=== PATIENT | male | born 1955 | race Caucasian/White ===

== ENCOUNTER 2018-07-09 16:26 | Emergency (ER) | payer BC, OTHER ==
[2018-07-09] MEDS ORDERED: Aspirin 81 MG Tab.Chew PO ONE (16:44)
--- NOTE | 2018-07-09 16:44 | EDM.PDOC ---
ED HPI GENERAL MEDICAL PROBLEM - General Chief Complaint: Chest Pain Stated Complaint: HEART ATTACK Time Seen by Provider: 07/09/18 16:38 Source of Information: Reports: Patient History Limitations: Reports: No Limitations - History of Present Illness INITIAL COMMENTS - FREE TEXT/NARRATIVE: 62-year-old male presents to the ED with central chest pressure discomfort since about 1238 hrs. today. It awoke him from sleep. Patient works nights. He states since that time it's been relatively steady and constant and made worse when he walked into the hospital. It radiates slightly into his back particularly with walking into the hospital and slightly into his left shoulder. He has no known disease. He has chronic hypertension and is on 3 different blood pressure medications. His father had a myocardial infarction at a young age as well. Patient is a nonsmoker. He does not feel short of breath. He did not break out in a sweat he had slight nausea that comes and goes. Burping and belching with no real relief of the pain. He is prone to reflux and states it's been pretty good labs of late. He is morbidly obese. Onset: Today Onset Date: 07/09/18 Onset Time: 12:35 Duration: Hour(s):, Constant Location: Reports: Chest (Central chest pressure discomfort.), Radiates to ( Radiates to his left back upper shoulder and anterior shoulder particularly when he was walking into the hospital i.e. exertion made it worse.) Quality: Reports: Ache, Pressure Severity: Moderate Improves with: Reports: None Worsens with: Reports: Other (Walking seemed to make it worse.) Context: Denies: Activity, Exercise, Lifting, Sick Contact, Trauma, Other Associated Symptoms: Reports: Chest Pain. Denies: No Other Symptoms (See history of present illness), Confusion, Cough, cough w sputum, Diaphoresis, Fever/Chills, Headaches, Loss of Appetite, Malaise, Nausea/Vomiting, Rash, Seizure, Shortness of Breath, Syncope, Weakness Treatments DEVELOPMENT DIRECTOR: Reports: Other (see below) (Only his regular medicines although he did take 2 baby aspirins about half hour before coming into the ED.) Chest Pain Score (Numeric/FACES): 5 - Related Data Allergies Allergy/AdvReac Type Severity Reaction Status Date / Time No Known Allergies Allergy Verified 07/09/18 16:30 Home Meds: Home Meds Dicyclomine [Bentyl] 20 mg PO Q6H PRN #10 tablet 07/09/18 [Rx] Ibuprofen 800 mg PO TID PRN 07/09/18 [History] Lorcaserin HCl [Belviq] 10 mg PO BID 07/09/18 [History] Losartan [Cozaar] 100 mg PO DAILY 07/09/18 [History] Metoprolol Succinate 100 mg PO BID 07/09/18 [History] amLODIPine Besylate [Amlodipine Besylate] 10 mg PO DAILY 07/09/18 [History] Past Medical History Cardiovascular History: Reports: Hypertension Respiratory History: Reports: Pneumonia, Recurrent Social & Family History - Tobacco Use Smoking Status *Q: Never Smoker - Caffeine Use Caffeine Use: Reports: Coffee - Recreational Drug Use Recreational Drug Use: No - Living Situation & Occupation Living situation: Reports: Occupation: Employed ED ROS GENERAL - Review of Systems Review Of Systems: See Below Constitutional: Reports: Malaise, Fatigue, Decreased Appetite. Denies: Fever, Chills HEENT: Reports: Glasses Respiratory: Denies: Shortness of Breath, Wheezing, Pleuritic Chest Pain, Cough , Sputum, Hemoptysis Cardiovascular: Reports: Chest Pain, Blood Pressure Problem (Central chest pressure discomfort.), Dyspnea on Exertion. Denies: Claudication ( Chronic hypertension and is on 3 medications for his blood pressure), Edema, Lightheadedness, Orthopnea Endocrine: Reports: Fatigue (Sometimes.) GI/Abdominal: Reports: Other (Had diarrhea once today when he got up.). Denies : Abdominal Pain : Reports: No Symptoms Musculoskeletal: Reports: Back Pain, Joint Pain (Knees and hips at times) Skin: Reports: No Symptoms Neurological: Reports: No Symptoms Psychiatric: Reports: No Symptoms Hematologic/Lymphatic: Reports: No Symptoms Immunologic: Reports: No Symptoms ED EXAM, GENERAL - Physical Exam Exam: See Below Exam Limited By: No Limitations General Appearance: Alert, WD/WN, Anxious, Mild Distress, Other (He is markedly hypertensive at 203/105.) Eye Exam: Bilateral Eye: Normal Inspection Neck: Normal Inspection, Supple, Non-Tender, Full Range of Motion. No: Carotid Bruit, Lymphadenopathy (L), Lymphadenopathy (R) Respiratory/Chest: No Respiratory Distress, Lungs Clear, Normal Breath Sounds, No Accessory Muscle Use, Chest Non-Tender Cardiovascular: Normal Peripheral Pulses, Regular Rate, Rhythm, No Edema, No Gallop, No JVD, No Murmur, No Rub Peripheral Pulses: 1+: Posterior Tibial (L), Posterior Tibial (R), Dorsalis Pedis (L), Dorsalis Pedis (R) GI/Abdominal: Normal Bowel Sounds, Soft, Non-Tender, No Organomegaly, No Abnormal Bruit, No Mass, Pelvis Stable, Other (No pain could be elicited on deep palpation in the epigastrium or right upper quadrant to suggest a GI source of his pain.) (Male) Exam: No Hernia Back Exam: Normal Inspection, Full Range of Motion. No: CVA Tenderness (L), CVA Tenderness (R) Extremities: Normal Inspection, Normal Range of Motion, Non-Tender, Pedal Edema (Trace at the ankles.) Neurological: Alert, Oriented, CN II-XII Intact, Normal Cognition, Normal Gait Psychiatric: Anxious Skin Exam: Warm, Dry (Mildly anxious.), Intact, Normal Color, No Rash EKG INTERPRETATION EKG Date: 07/09/18 Time: 16:30 Rhythm: NSR Rate (Beats/Min): 63 [place]: Normal P-Wave: Present QRS: Normal ST-T: Normal QT: Normal EKG Interpretation Comments: Normal ECG. Course - Vital Signs Last Recorded V/S: Last Vital Signs Temp 36.7 C 07/09/18 16:31 Pulse 71 07/09/18 16:31 Resp 18 07/09/18 16:31 BP 203/105 H 07/09/18 16:31 Pulse Ox 97 07/09/18 16:31 - Orders/Labs/Meds Orders: Active Orders 24 hr Category Date Time Status EKG Documentation Completion [RC] STAT Care 07/09/18 16:45 Active Chest 1V Frontal [CR] Stat Exams 07/09/18 16:45 Taken Labs: Laboratory Tests 07/09/18 07/09/18 07/09/18 Range/Units 16:48 16:48 16:48 WBC 6.34 (4.23-9.07) K/mm3 RBC 4.96 (4.63-6.08) M/mm3 Hgb 15.2 (13.7-17.5) gm/L Hct 46.5 (40.1-51.0) % MCV 93.8 H (79.0-92.2) fl MCH 30.6 (25.7-32.2) pg MCHC 32.7 (32.2-35.5) g/dl RDW Std Deviation 46.1 H (35.1-43.9) fL Plt Count 263 (163-337) K/mm3 MPV 10.1 (9.4-12.3) fl Neutrophils % (Manual) 61 H (40-60) % Band Neutrophils % 0 (0-10) % Lymphocytes % (Manual) 38 (20-40) % Atypical Lymphs % 0 % Monocytes % (Manual) 1 L (2-10) % Eosinophils % (Manual) 0 L (0.8-7.0) % Basophils % (Manual) 0 L (0.2-1.2) Platelet Estimate Adequate RBC Morph Comment Normal PT 10.9 (9.5-12.1) SECONDS INR 1.00 APTT (24-31) SECONDS D-Dimer, Quantitative (0.19-0.50) mg/L Sodium 141 (136-145) mEq/L Potassium 3.8 (3.5-5.1) mEq/L Chloride 103 (98-107) mEq/L Carbon Dioxide 26 (21-32) mEq/L Anion Gap 15.8 H (5-15) BUN 11 (7-18) mg/dL Creatinine 0.9 (0.7-1.3) mg/dL Est Cr Clr Drug Dosing 92.96 mL/min Estimated GFR (MDRD) > 60 (>60) mL/min BUN/Creatinine Ratio 12.2 L (14-18) Glucose 99 (74-106) mg/dL Calcium 10.0 (8.5-10.1) mg/dL Magnesium 2.0 (1.8-2.4) mg/dl Total Bilirubin 0.4 (0.2-1.0) mg/dL AST 12 L (15-37) U/L ALT 33 (16-63) U/L Alkaline Phosphatase 75 (46-116) U/L CK-MB (CK-2) 1.8 (0-3.6) ng/ml Troponin I < 0.017 (0.00-0.056) ng/mL NT-Pro-B Natriuret Pep (0-125) pg/mL Total Protein 7.1 (6.4-8.2) g/dl Albumin 3.8 (3.4-5.0) g/dl Globulin 3.3 gm/dL Albumin/Globulin Ratio 1.2 (1-2) 07/09/18 07/09/18 Range/Units 16:48 16:48 WBC (4.23-9.07) K/mm3 RBC (4.63-6.08) M/mm3 Hgb (13.7-17.5) gm/L Hct (40.1-51.0) % MCV (79.0-92.2) fl MCH (25.7-32.2) pg MCHC (32.2-35.5) g/dl RDW Std Deviation (35.1-43.9) fL Plt Count (163-337) K/mm3 MPV (9.4-12.3) fl Neutrophils % (Manual) (40-60) % Band Neutrophils % (0-10) % Lymphocytes % (Manual) (20-40) % Atypical Lymphs % % Monocytes % (Manual) (2-10) % Eosinophils % (Manual) (0.8-7.0) % Basophils % (Manual) (0.2-1.2) Platelet Estimate RBC Morph Comment PT (9.5-12.1) SECONDS INR APTT 28 (24-31) SECONDS D-Dimer, Quantitative < 0.19 L (0.19-0.50) mg/L Sodium (136-145) mEq/L Potassium (3.5-5.1) mEq/L Chloride (98-107) mEq/L Carbon Dioxide (21-32) mEq/L Anion Gap (5-15) BUN (7-18) mg/dL Creatinine (0.7-1.3) mg/dL Est Cr Clr Drug Dosing mL/min Estimated GFR (MDRD) (>60) mL/min BUN/Creatinine Ratio (14-18) Glucose (74-106) mg/dL Calcium (8.5-10.1) mg/dL Magnesium (1.8-2.4) mg/dl Total Bilirubin (0.2-1.0) mg/dL AST (15-37) U/L ALT (16-63) U/L Alkaline Phosphatase (46-116) U/L CK-MB (CK-2) (0-3.6) ng/ml Troponin I (0.00-0.056) ng/mL NT-Pro-B Natriuret Pep 69 (0-125) pg/mL Total Protein (6.4-8.2) g/dl Albumin (3.4-5.0) g/dl Globulin gm/dL Albumin/Globulin Ratio (1-2) Meds: Medications Discontinued Medications Generic Name Dose Route Start Last Admin Trade Name Freq PRN Reason Stop Dose Admin Aspirin 162 mg 07/09/18 16:44 07/09/18 16:51 Aspirin PO 07/09/18 16:45 162 mg ONETIME ONE Administration Al Hydroxide/Mg Hydroxide 30 0 ml 07/09/18 19:15 07/09/18 19:59 ml/ Lidocaine HCl 15 ml PO 07/09/18 19:16 45 ml ONETIME ONE Administration Dicyclomine HCl 20 mg 07/09/18 19:13 07/09/18 19:59 Bentyl PO 07/09/18 19:14 20 mg ONETIME ONE Administration Hydromorphone HCl 1 mg 07/09/18 19:13 07/09/18 20:00 Dilaudid IVPUSH 07/09/18 19:14 1 mg ONETIME ONE Administration Hyoscyamine 0.125 mg 07/09/18 17:00 07/09/18 16:53 Hyomax-Sl SL 07/09/18 17:01 0.125 mg ONETIME ONE Administration Nitroglycerin/Dextrose 25 mg in 250 mls @ 6 mls/hr 07/09/18 16:45 07/09/18 18 :09 Nitroglycerin 25 Mg/D5w 250 Ml IV 15 mcg/min TITRATE ADRAYN 9 mls/hr Titration Protocol 10 MCG/MIN Metoclopramide HCl 10 mg 07/09/18 19:14 07/09/18 20:01 Reglan IVPUSH 07/09/18 19:15 10 mg ONETIME ONE Administration - Radiology Interpretation Free Text/Narrative:: 62-year-old male presents to the ED with diffuse central heaviness pressure discomfort since about 1238 hrs. this afternoon. He awoke from sleep with a central chest discomfort. Patient works nights and was sleeping his normal hours. States the chest pain has persisted for the last 4 hours. It was made worse by walking into the hospital were seemed to radiate into his left upper back and shoulder. She did diaphoresis or real shortness of breath. He has been burping and belching an attempt to relieve some discomfort without much relief. Known history of coronary disease but his father did have a myocardial infraction a young age. Patient has severe hypertension and is on 3 different antihypertensive. He is morbidly obese. He is not sure about his cholesterol status. He is a never smoker. She'll ECG shows normal sinus rhythm at 63/m with no signs of ischemia. took 2 baby aspirins before leaving his home. I will give him another 2 baby aspirins here. He will be started on nitro drip at 10 mcg/m to help reduce his blood pressure see if it helps alleviate his chest discomfort. Will also give him Levsin 0.125 mg sublingually and repeat a second tablet in 10 minutes time to see relieves any esophageal or hiatal hernia type pain. - Re-Assessments/Exams Free Text/Narrative Re-Assessment/Exam: 07/09/18 17:12 chest x-ray done portably reveals moderate cardiomegaly and diffuse vascular congestion pattern. Hemidiaphragm is perhaps slightly elevated. No pneumothorax present. 07/09/18 17:21 patient feels his chest discomfort is easing up. He still rates it as a 2-3 out of 07/09/18 19:03 Labs reveal a normal white count at 6.34. Differential 61% neutrophils with no band cells. Hemoglobin is 15.2 with hematocrit of 46.5. Platelet count is 263,000. PT is 10.9 with an INR 1.00. PTT is 28. D-dimer is less than 0.19. Sodium 141 with a potassium of 3.8. Chloride 103 with a bicarbonate 26. And a gap is 15.8. BUN is 11 with a creatinine of 0.9. GFR is greater than 60. Glucose is 99 with a calcium of 10.0. Magnesium 2.0. Liver function is normal. CK-MB is 1.8 and troponin I is less than 0.017. BNP is 69. Total protein 7.1 with an albumin fraction of 3.8. 07/09/18 19:14 Discussed the findings with the patient. I suspect the cause of his chest pain is GI in origin as I felt this was the case from my initial assessment and a normal ECG. I am going to treat him with Dilaudid 1 mg IV and Reglan 10 mg IV for suspect hiatal hernia. I will give him a GI cocktail and Bentyl 20 mg by mouth and see what happens. 07/09/18 21:14: Patient reports he feels much better after the above medication. He particular feels the GI cocktail helped the most. Still has a very mild discomfort central chest but for the most part it is gone. This suggest strongly to me that he likely has a sliding hiatal hernia is stuck up in his lower chest. I will send him home on Bentyl 20 mg every 6 hours needed for the next day or 210 tablets will be provided. Also advised him to return to some form of antacid treatment such as Prilosec 20 mg every night at bedtime as he may be refluxing during the night due to his body habitus. If symptoms persist he may need EGD and/or barium swallow to assess his degree of his hiatal hernia. He states when he was young he used to wake up with brash water acid reflux and is mouth multiple times. He was treated for H. pylori infection and peptic ulcer disease and then things seemed to get better. Patient reassured at length that at this time there is no clinical evidence of heart related illness. Follow-up as needed. Departure - Departure Time of Disposition: 21:12 Disposition: Home, Self-Care 01 Condition: Fair Clinical Impression: Non-cardiac chest pain, Hiatal hernia Prescriptions: Dicyclomine [Bentyl] 20 mg PO Q6H PRN #10 tablet PRN Reason: Abdominal cramps/diarrhea Instructions: Hiatal Hernia, Nonspecific Chest Pain, [id number] Referrals: Kp Sullivan PA [Primary Care Provider] - Forms: ED Department Discharge Additional Instructions: Evaluation the emergency room today in regards to development of central chest pain that woke him from sleep about 1238 hrs. today. You were reviewed in the ED nearly 4 hours after development of central chest discomfort. Electrocardiogram proved to be bluntly normal showing no signs of heart attack or we call ischemia. Chest x-ray suggests that the heart is mildly enlarged lab tests proved that there was no evidence of heart attack as your enzymes were near 0. No evidence of blood clot in the lung and no extra fluid buildup in the lungs. Therefore an alternative cause for central chest pain is usually gastrointestinal in origin either esophageal spasm often due to reflux that occurs during the night when we are sleeping and may or may not cause heartburn. This can make the food pipe going to spasm in her just about as bad as heart attack. More likely however is that the stomach slid partially up into the chest behind the heart and stretching the opening through the diaphragm. This is called a hiatal hernia. This is likely to occur again in the future and you may still have discomfort lower chest and epigastrium of the stomach for the next couple of days. Suggest Bentyl tablets 20 mg every 6 hours needed for relief of discomfort. To just also going back on an antacid for about a month such as Prilosec 20 mg every night at bedtime. Rule out any inflammation of the food pipe to heal. Try not to eat anything before lying down for sleep. Usually the stomach should be empty for about 3 hours before going to bed or sleep as this will make it much less likely for a hiatal hernia to occur with the stomach slipping or sliding up into the chest. If symptoms persist then further investigations are required such as upper GI endoscopy and/or barium swallow. - My Orders Last 24 Hours: My Active Orders 07/09/18 16:45 EKG Documentation Completion [RC] STAT Chest 1V Frontal [CR] Stat - Assessment/Plan Last 24 Hours: My Active Orders 07/09/18 16:45 EKG Documentation Completion [RC] STAT Chest 1V Frontal [CR] Stat
[2018-07-09] MEDS ORDERED: Nitroglycerin/D5W 25 MG/250 ML BOTTLE IV SCH (16:45)
[2018-07-09] MEDS ORDERED: Hyoscyamine 0.125 MG Tab.SL SL ONE (17:00)
[2018-07-09] MEDS ORDERED: HYDROmorphone 1 MG/ML Syringe IVPUSH ONE (19:13)
[2018-07-09] MEDS ORDERED: Dicyclomine 10 MG Cap PO ONE (19:13)
[2018-07-09] MEDS ORDERED: Metoclopramide 10 MG/2 ML SDV IVPUSH ONE (19:14)
[2018-07-09] MEDS ORDERED: Alum Hydrox/Mag Hydrox/Simeth 30 ML, Lidocaine 2% 15 ML PO ONE ×2 (19:15)
--- NOTE | 2018-07-10 08:07 | CR ---
Chest: Portable view of the chest was obtained. Comparison: Prior chest x-ray of 02/23/18. Heart size is within normal limits for portable technique. Tortuous thoracic aorta is seen. Lungs are clear with no acute parenchymal change. Bony structures are grossly intact. Impression: 1. Nothing acute is seen on portable chest x-ray. Diagnostic code #2
== END 2018-07-09 21:29 | disposition home or self-care (01) ==
LOC: JD.ED 16:26
DX: K44.9 Diaphragmatic hernia without obstruction or gangrene (principal); R07.89 Other chest pain; Z79.899 Other long term (current) drug therapy
CPT/HCPCS: 36415; 71045; 80053; 82553; 83735; 83880; 84484; 85007; 85027; 85379; 85610; 85730; 93005; 96365; 96366; 96375; 99285; A9270; J1170; J2765; J3490

== ENCOUNTER 2018-12-12 03:20 | Emergency (ER) | payer BC, OTHER ==
[2018-12-12] MEDS ORDERED: Hydrochlorothiazide 25 MG Tab PO ONE (03:58)
[2018-12-12] MEDS ORDERED: FLU Vacc QS2019-20(6MOS+)/PF 60 MCG/0.5 ML SYRINGE IM ONE (04:00)
--- NOTE | 2018-12-12 04:07 | EDM.PDOC ---
ED HPI GENERAL MEDICAL PROBLEM - General Chief Complaint: Cardiovascular Problem Stated Complaint: BP OVER 192/116 LITTLE BIT OF CHEST PAIN Time Seen by Provider: 12/12/18 03:39 Source of Information: Reports: Patient History Limitations: Reports: No Limitations - History of Present Illness INITIAL COMMENTS - FREE TEXT/NARRATIVE: 63 y/o M with hx HTN on metoprolol, amlodipine, and losartan presents with concerns about his blood pressure. States he's been taking his meds as prescribed. He has had persistently high blood pressures for the past several days, mostly in the 180-190's range systolic. He's had some mild chest tightness , no chest pain. Feels chronically short of breath, no change. No lower extremity pain or swelling. Came to ED because BP was 190/110 at home about 1/2 hr after taking his morning med (metoprolol). No additional complaint. Has PCP f /u scheduled for 3 days from now. - Related Data Allergies Allergy/AdvReac Type Severity Reaction Status Date / Time No Known Allergies Allergy Verified 07/09/18 16:30 Home Meds: Home Meds Losartan [Cozaar] 100 mg PO DAILY 07/09/18 [History] Metoprolol Succinate 100 mg PO BID 07/09/18 [History] amLODIPine Besylate [Amlodipine Besylate] 10 mg PO DAILY 07/09/18 [History] Past Medical History Cardiovascular History: Reports: Hypertension Respiratory History: Reports: Pneumonia, Recurrent Social & Family History - Family History Family Medical History: Noncontributory - Tobacco Use Smoking Status *Q: Never Smoker - Caffeine Use Caffeine Use: Reports: Energy Drinks - Recreational Drug Use Recreational Drug Use: No - Living Situation & Occupation Living situation: Reports: Occupation: Employed ED ROS GENERAL - Review of Systems Review Of Systems: See Below Constitutional: Reports: No Symptoms HEENT: Reports: No Symptoms Respiratory: Reports: Shortness of Breath Cardiovascular: Denies: Edema Endocrine: Reports: No Symptoms GI/Abdominal: Reports: No Symptoms : Reports: No Symptoms Musculoskeletal: Reports: No Symptoms Skin: Reports: No Symptoms Neurological: Reports: No Symptoms Psychiatric: Reports: No Symptoms Hematologic/Lymphatic: Reports: No Symptoms ED EXAM, GENERAL - Physical Exam Exam: See Below Exam Limited By: No Limitations General Appearance: Alert, WD/WN, No Apparent Distress Eye Exam: Bilateral Eye: Normal Inspection Ears: Normal External Exam Nose: Normal Inspection Throat/Mouth: Normal Inspection, Normal Oropharynx, Normal Voice Head: Atraumatic, Normocephalic Neck: Normal Inspection Respiratory/Chest: No Respiratory Distress, Lungs Clear, Normal Breath Sounds, Chest Non-Tender Cardiovascular: Normal Peripheral Pulses, Regular Rate, Rhythm, No Edema, No Murmur GI/Abdominal: Soft, Non-Tender, No Distention. No: Rebound Back Exam: Normal Inspection Extremities: Normal Inspection, No Pedal Edema Neurological: Alert, Oriented, Normal Cognition, No Motor/Sensory Deficits Psychiatric: Normal Affect, Normal Mood Skin Exam: Warm, Dry, Intact, Normal Color, No Rash Course - Vital Signs Last Recorded V/S: Last Vital Signs Temp 36.6 C 12/12/18 03:34 Pulse 84 12/12/18 03:34 Resp 16 12/12/18 03:34 BP 192/104 H 12/12/18 03:34 Pulse Ox 98 12/12/18 03:34 - Orders/Labs/Meds Orders: Active Orders 24 hr Category Date Time Status EKG 12 Lead [EKG Documentation Completion] [RC] STAT Care 12/12/18 03:39 Active Influenza Vaccine Charge [RC] .DISCHARGE Care 12/12/18 03:48 Active Chest 1V Frontal [CR] Stat Exams 12/12/18 03:39 Ordered Pharmacy to Dose - InFluenza V [Pharmacy to Dose - Med 12/12/18 03:48 Pending InFluenza Vaccine] 1 each IM ONETIME ONE Medication Orders Influenza Virus Vaccine (Pharmacy To Dose - Influenza Vaccine) 1 each IM ONETIME ONE Stop: 12/12/18 03:49 Labs: Laboratory Tests 12/12/18 12/12/18 Range/Units 03:55 03:55 WBC 9.38 H (4.23-9.07) K/mm3 RBC 4.78 (4.63-6.08) M/mm3 Hgb 15.6 (13.7-17.5) gm/dl Hct 45.3 (40.1-51.0) % MCV 94.8 H (79.0-92.2) fl MCH 32.6 H (25.7-32.2) pg MCHC 34.4 (32.2-35.5) g/dl RDW Std Deviation 49.6 H (35.1-43.9) fL Plt Count 266 (163-337) K/mm3 MPV 10.2 (9.4-12.3) fl Neut % (Auto) 54.8 (34.0-67.9) % Lymph % (Auto) 34.0 (21.8-53.1) % [place] % (Auto) 7.6 (5.3-12.2) % Eos % (Auto) 3.1 (0.8-7.0) Baso % (Auto) 0.5 (0.1-1.2) % Neut # (Auto) 5.14 (1.78-5.38) K/mm3 Lymph # (Auto) 3.19 (1.32-3.57) K/mm3 [place] # (Auto) 0.71 (0.30-0.82) K/mm3 Eos # (Auto) 0.29 (0.04-0.54) K/mm3 Baso # (Auto) 0.05 (0.01-0.08) K/mm3 Sodium 138 (136-145) mEq/L Potassium 3.6 (3.5-5.1) mEq/L Chloride 105 (98-107) mEq/L Carbon Dioxide 27 (21-32) mEq/L Anion Gap 9.6 (5-15) BUN 11 (7-18) mg/dL Creatinine 1.0 (0.7-1.3) mg/dL Est Cr Clr Drug Dosing 82.62 mL/min Estimated GFR (MDRD) > 60 (>60) mL/min BUN/Creatinine Ratio 11.0 L (14-18) Glucose 111 (80-115) mg/dL Calcium 9.9 (8.5-10.1) mg/dL Total Bilirubin 0.3 (0.2-1.0) mg/dL AST 17 (15-37) U/L ALT 43 (16-63) U/L Alkaline Phosphatase 78 (46-116) U/L Troponin I < 0.017 (0.00-0.056) ng/mL Total Protein 6.9 (6.4-8.2) g/dl Albumin 3.8 (3.4-5.0) g/dl Globulin 3.1 gm/dL Albumin/Globulin Ratio 1.2 (1-2) Meds: Medications Generic Name Dose Route Start Last Admin Trade Name Freq PRN Reason Stop Dose Admin Influenza Virus Vaccine 1 each 10/06/19 03:48 Pharmacy To Dose - Influenza Vaccine IM 12/12/18 03:49 ONETIME ONE Discontinued Medications Generic Name Dose Route Start Last Admin Trade Name Kenton ROONEY Reason Stop Dose Admin Hydrochlorothiazide 25 mg 12/12/18 03:58 Hydrochlorothiazide PO 12/12/18 03:59 ONETIME ONE Influenza Virus Vaccine 60 mcg 12/12/18 04:00 Fluzone Quad [id number] Syringe IM 12/12/18 04:01 .ONCE ONE - Re-Assessments/Exams Free Text/Narrative Re-Assessment/Exam: 12/12/18 04:01 EKG shows NSR, T wave flattening diffusely, no ST abnormality. Patient's BP here came down without intervention, currently 146/80. 12/12/18 04:07 Patient was hypertensive when he arrived with SBP in 190's, but it is now 146/ 80 without intervention. He did take his metoprolol about an hour and a half ago. Given current numbers, no indication for ED intervention. Will make sure labs look ok, and if so, plan to discharge him. He does have f/u scheduled for 3 days from now. Advised him to keep a log to show his PCP. Discussed ED return precautions. 12/12/18 04:33 Troponin negative. CBC and CMP are unremarkable. He has had consistent systolic BP's in the 140's during his ED stay. CXR shows no acute abnormality. Departure - Departure Time of Disposition: 04:45 Disposition: Home, Self-Care 01 Clinical Impression: Hypertension Qualifiers: Hypertension type: essential hypertension Qualified Code(s): I10 - Essential ( primary) hypertension Instructions: Hypertension, [id number] Referrals: Andrews Hale PA-C [Primary Care Provider] - Forms: ED Department Discharge, ED Return to Work/School Form Additional Instructions: 1. Continue your usual blood pressure medications. 2. Continue to keep a log of your blood pressures. 3. Follow up with your primary care provider as planned. 4. Return to the ED as needed for chest pain, shortness of breath, severe pain, or any other concerning symptoms. - My Orders Last 24 Hours: My Active Orders 12/12/18 03:39 EKG 12 Lead [EKG Documentation Completion] [RC] STAT Chest 1V Frontal [CR] Stat 12/12/18 03:48 Influenza Vaccine Charge [RC] .DISCHARGE Pharmacy to Dose - InFluenza V [Pharmacy to Dose - InFluenza Vaccine] 1 each IM ONETIME ONE - Assessment/Plan Last 24 Hours: My Active Orders 12/12/18 03:39 EKG 12 Lead [EKG Documentation Completion] [RC] STAT Chest 1V Frontal [CR] Stat 12/12/18 03:48 Influenza Vaccine Charge [RC] .DISCHARGE Pharmacy to Dose - InFluenza V [Pharmacy to Dose - InFluenza Vaccine] 1 each IM ONETIME ONE
--- NOTE | 2018-12-13 08:01 | CR ---
Chest: Portable view of the chest was obtained. Comparison: Prior chest x-ray of 07/09/18. Heart size appears within normal limits for portable technique. Tortuous thoracic aorta is noted. Lungs are clear with no acute parenchymal change. Bony structures are grossly intact. Impression: 1. Nothing acute is appreciated on portable chest x-ray. Diagnostic code #2
== END 2018-12-12 04:44 | disposition home or self-care (01) ==
LOC: JD.ED 03:20
DX: I10 Essential (primary) hypertension (principal); Z79.899 Other long term (current) drug therapy
CPT/HCPCS: 36415; 71045; 71045-26; 80053; 84484; 85025; 93005; 93010; 99283; 99285-25